=== PATIENT | female | born 1975 | race Caucasian/White ===

== ENCOUNTER 2017-03-06 17:04 | Emergency (ER) | payer OTHER ==
[~2017-03-06] VITALS: Ht 157.5 cm; Wt 67.2 kg
[2017-03-06 17:08] VITALS: Ht 157.5 cm; Wt 67.2 kg
--- NOTE | 2017-03-06 17:28 | ERD ---
ER Documentation Chief Complaint Chief Complaint left foot pain x 2 days HPI 42-year-old female presents with left foot pain that began this morning. She woke up with the pain. There is no trauma. She is able to ambulate slowly with pain. She has been taking Motrin 800 mg but does not help. No numbness or tingling. No redness or swelling. No fever. ROS All systems reviewed and are negative except as per history of present illness. FmHx Family History: No diabetes Physical Exam Vitals Vital Signs Date Time Temp Pulse Resp B/P Pulse Ox O2 Delivery O2 Flow Rate FiO2 03/06/17 17:08 98.2 76 18 129/61 97 Physical Exam Const: [] Head: Atraumatic Eyes: Normal Conjunctiva ENT: Normal External Ears, Nose and Mouth. Neck: Full range of motion..~ No meningismus. Resp: Clear to auscultation bilaterally Cardio: Regular rate and rhythm, no murmurs Abd: Soft, non tender, non distended. Normal bowel sounds Skin: No petechiae or rashes Back: No midline or flank tenderness Ext: Plantar surface of the left foot is tender with callus formation on the plantar surface of the big toe, no erythema or edema, sensation to light touch is intact, capillary refill less than 2 seconds, pedal pulse 2+ Results 24 hrs Current Medications Medications (Trade) Dose Ordered Sig/Kirk Route PRN Reason Start Time Stop Time Status Last Admin Dose Admin Acetaminophen/ Hydrocodone Bitart ([place] (5/325)) 1 tab ONCE ONCE PO 03/06/17 17:30 03/06/17 17:31 Procedures/MDM 42-year-old female presents with left foot pain. Examination is normal and is no concern for infection, DVT. This is most likely plantar fasciitis or musculoskeletal pain. She is discharged with ibuprofen, Flexeril, and [place]. Patient counseled regarding my diagnostic impression and care plan. Prior to discharge all questions answered. Pt agrees with treatment plan and understands strict return precautions. Pt is instructed to follow up with primary care provider within 24-48 hours. Precautionary instructions provided including instructions to return to the ER if not improving or for any worsening or changing symptoms or concerns. Departure Condition: Stable MADDISON RIVERA PA-C Mar 06, 2017 17:28
[2017-03-06] MEDS ORDERED: IBUP800T25 PO (17:29)
[2017-03-06] MEDS ORDERED: HYDR-906 PO (17:29)
[2017-03-06] MEDS ORDERED: CYCL-319 PO (17:29)
[2017-03-06] MEDS ORDERED: HYDROCODONE/APAP (5/325) TAB PO ONE (17:30)
== END 2017-03-06 18:09 | disposition home or self-care (01) ==
LOC: FTE 17:04
DX: M79.672 Pain in left foot (principal)
CPT/HCPCS: Z7502; Z7610; 99283